=== PATIENT | female | born 1955 | race Caucasian/White ===

== ENCOUNTER 2025-08-06 18:47 | Emergency (ER) | payer MEDICARE, MEDICAID ==
[~2025-08-06] VITALS: Ht 167.6 cm; Wt 73.0 kg
[2025-08-06 18:51] VITALS: O2SAT 99
[2025-08-06 20:49] VITALS: PULSE 104
[2025-08-06] MEDS: KETOROLAC 30MG/ML VIAL IM ONE (20:49)
[2025-08-06] MEDS: LIDOCAINE 5% PATCH TOP SCH (20:50)
[2025-08-06 20:54] VITALS: BP 181/89; RESP 18
[2025-08-06] MEDS ORDERED: BO1 TP (21:05)
[2025-08-06] MEDS ORDERED: ACET-2708 MT (21:05)
== END 2025-08-06 22:00 | disposition home or self-care (01) ==
LOC: ER 18:47
DX: S09.90XA Unspecified injury of head, initial encounter (principal); I10 Essential (primary) hypertension; E11.9 Type 2 diabetes mellitus without complications; W18.30XA Fall on same level, unspecified, initial encounter; Y93.89 Activity, other specified; Y92.89 Other specified places as the place of occurrence of the external cause; Y99.8 Other external cause status
CPT/HCPCS: 99285; 70450; 71045; 72125; 96372; J1885